=== PATIENT | male | born 1995 | race Caucasian/White ===

== ENCOUNTER 2018-01-26 16:45 | Emergency (ER) | payer SELFPAY ==
[~2018-01-26] VITALS: Ht 180.3 cm; Wt 109.0 kg
[2018-01-26 16:45] VITALS: BP 143/86; PULSE 100; RESP 16; TEMP 98.1; O2SAT 98
--- NOTE | 2018-01-26 17:30 | PD ---
HPI Chief Complaint: Headache Time Seen by Provider: 17:10 Travel History International Travel<30 days: No Contact w/Intl Traveler<30days: No Traveled to known affect area: No History of Present Illness HPI 22-year-old male with history of traumatic brain injury and recurrent headaches , presents emergency department for evaluation of a headache intermittently occurring times 2 months. Patient denies any new trauma. He has had no recent illnesses, fever, or chills. Patient states he does have allergies that seem to be acting up about this time. He denies any focal deficits or weakness. He does have mild nausea without vomiting. He has no other symptoms to report. FORMERLY [facility] Past Medical History ADD: Yes Medical other: Yes (TBI) Past Surgical History Neurologic Surgery: Yes (TBI) Social History Alcohol Use: No Tobacco Use: No Substance Use: Yes (marijuana daily) Allergies-Medications (Allergen,Severity, Reaction): Coded Allergies: No Known Allergies (Verified Allergy, Unknown, 01/26/18) Reported Meds & Prescriptions Reported Meds & Active Scripts Active No Active Prescriptions or Reported Medications Review of Systems Except as stated in HPI: all other systems reviewed are Neg Physical Exam Narrative GENERAL: Well-nourished, well-developed male patient, in no acute distress . SKIN: Focused skin assessment warm/dry. HEAD: Normocephalic. ENT: Mucosa pink and moist. No erythema or exudates. No uvular edema. No uvular , palatal, or tonsillar deviation. Airway patent. Nasal turbinates appear normal without nasal blood, purulent drainage or septal hematoma. EYES: No scleral icterus. No injection or drainage. Pupils are equal and reactive NECK: Supple, trachea midline. No JVD or lymphadenopathy. CARDIOVASCULAR: Regular rate and rhythm without murmurs, gallops, or rubs. RESPIRATORY: Breath sounds equal bilaterally. No accessory muscle use. GASTROINTESTINAL: Abdomen soft, non-tender, nondistended. MUSCULOSKELETAL: No cyanosis, or edema. 5+ strength equal bilateral extremities BACK: Nontender without obvious deformity. No CVA tenderness. Data Data Last Documented VS Vital Signs Date Time Temp Pulse Resp B/P (MAP) Pulse Ox O2 Delivery O2 Flow Rate FiO2 01/26/18 16:45 98.1 100 16 143/86 (105) 98 Orders Orders Iv Access Insert/Monitor (01/26/18 18:04) Ketorolac Inj (Toradol Inj) (01/26/18 18:15) Metoclopramide Inj (Reglan Inj) (01/26/18 18:15) Diphenhydramine Inj (Benadryl Inj) (01/26/18 18:15) Sodium Chlor 0.9% 1000 Ml Inj (Ns 1000 M (01/26/18 18:15) MDM Medical Decision Making Medical Screen Exam Complete: Yes Emergency Medical Condition: Yes Medical Record Reviewed: Yes Differential Diagnosis Migraine headache with or without aura versus sinus headache versus tension headache versus cluster headache Narrative Course 22-year-old male presents emergency department for evaluation of a headache. Patient does have recurrent headaches. This is not different from his other headaches. He has no focal deficits or weakness. Patient is treated with normal saline bolus, Reglan, Benadryl, Toradol. Upon reassessment, headache has resolved. He will be discharged home at this time. He agrees to follow-up with a primary care provider and return immediately with acute worsening of symptoms. Diagnosis Primary Impression: Head ache Qualified Codes: R51 - Headache Referrals: Primary Care Physician Patient Instructions: Acute Headache (ED), General Instructions Departure Forms: Tests/Procedures, Work Release Enter return to work date: Jan 28, 2018 Additional Instructions: Rest Maintain adequate oral hydration Follow-up with primary care provider Return immediately with acute worsening of symptoms Scripts No Active Prescriptions or Reported Meds Disposition: 01 DISCHARGE HOME Condition: Stable GanCathy mccullough ROSSY Jan 26, 2018 17:30
[2018-01-26] MEDS ORDERED: SODIUM CHLOR 0.9% 1000 ML INJ 1,000 ML IV ONE (18:15)
[2018-01-26] MEDS ORDERED: KETOROLAC TROMETHAMINE 30 MG/ML (IVP) VIAL IV PUSH ONE (18:15)
[2018-01-26] MEDS ORDERED: METOCLOPRAMIDE HCL 10 MG/2 ML VIAL IV PUSH ONE (18:15)
[2018-01-26] MEDS ORDERED: diphenhydrAMINE HCL 50 MG/ML VIAL IV PUSH ONE (18:15)
[2018-01-26 19:45] VITALS: BP 114/55; PULSE 60; RESP 16; O2SAT 100
== END 2018-01-26 19:59 | disposition home or self-care (01) ==
LOC: NEPD 16:45
DX: R51 Headache (principal); R11.0 Nausea; Z87.820 Personal history of traumatic brain injury
CPT/HCPCS: 96361; 96374; 96375; 99284; J1200; J1885; J2765; J7030